=== PATIENT | female | born 1935 | race Two or more races ===

== ENCOUNTER 2022-10-14 22:53 | Emergency (ER) | payer MEDICARE, OTHER ==
[~2022-10-14] VITALS: Ht 167.6 cm; Wt 120.0 kg
== END 2022-10-14 23:07 ==
LOC: ER 22:53 → EDBD 22:53 → ER 23:07
DX: I46.9 Cardiac arrest, cause unspecified (principal); I11.0 Hypertensive heart disease with heart failure; I50.9 Heart failure, unspecified; I48.91 Unspecified atrial fibrillation; Z95.0 Presence of cardiac pacemaker
CPT/HCPCS: 92950